=== PATIENT | male | born 1960 | race Caucasian/White ===

== ENCOUNTER 2020-12-04 13:32 | Emergency (ER) | payer MEDICAID, SELFPAY ==
[2020-12-04] VITALS (10 sets, daily range): BP systolic 132–169; BP diastolic 79–86; PULSE 61–85; RESP 12–26; TEMP 36.7; O2SAT 95–99
--- NOTE | ~2020-12-04 | XR_ITS ---
EXAMINATION: XR chest 2V DATE: 12/04/2020 14:36 INDICATION: Chest pain. Flulike symptoms. Generalized weakness. TECHNIQUE: frontal and lateral views of the chest were obtained. COMPARISON: None FINDINGS: Minimal streaky atelectasis at the right middle lobe. Tiny calcified nodules at the left costophrenic angle consistent with old granulomatous disease. No other airspace opacities, pulmonary edema, pleur al effusion or pneumothorax. The cardiomediastinal silhouette is normal. Couple old healed posterior right seventh and eighth rib fractures. Chronic appearing minimal to mild anterior wedging of a a few mid to lower thoracic vertebral bodies. IMPRESSION: 1. Minimal streaky atelectasis at the right middle lobe. No other acute cardiopulmonary disease. Reviewed, dictated and finalized at location A. IMPRESSION: 1. Minimal streaky atelectasis at the right middle lobe. No other acute cardiop ulmonary disease.
--- NOTE | 2020-12-04 14:03 | ECG_ITS ---
Measurements Intervals [place] Rate: 70 P: 76 AK: 148 QRS: 76 QRSD: 98 T: 68 QT: 365 QTc: 396 Interpretive Statements SINUS RHYTHM BASELINE ARTIFACT- I, II, AVR NORMAL ECG Electronically Signed On 12-04-2020 15:10:36 CDT by Robert Trimble D.O.
[2020-12-04 15:19] LABS: Basophils Absolute Auto 0.1 K/mm3 (0.0-0.1); Eosinophils Absolute Auto 0.1 K/mm3 (0-0.3); Eosinophils Percent Auto 0.7 % (0-4.4); Hematocrit 47.4 % (42.0-52.0); Hemoglobin 16.3 g/dL (14.0-18.0); Immature Granulocyte Absolute 0.06 K/mm3 (0.00-0.031); Immature Granulocyte Percent A 0.8 % (0-0.5); Lymphocytes Absolute Auto 1.84 K/mm3 (0.9-3.2); Mean Corpuscular HGB Conc 34.4 g/dl (32-36); Mean Corpuscular Volume 90.1 fl (80-100); Mean Platelet Volume 11.4 fl (7.4-10.4); Monocytes Absolute Auto 0.8 K/mm3 (0.1-0.6); Monocytes Percent Auto 11.6 % (2.6-8.5); Neutrophils Absolute Auto 4.2 K/mm3 (1.3-6.7); Neutrophils Percent Auto 59.9 % (45.5-73.1); Platelet Count Result 193 k/mm3 (150-375); Red Blood Count 5.26 M/mm3 (4.6-6.20); Red Cell Distribution Width 12.8 % (11.5-14.5); White Blood Count 7.1 K/mm3 (4.5-10.0)
[2020-12-04 15:24] LABS: Anion Gap 11 mmol/L (8-16); Blood Urea Nitrogen 14 mg/dL (9-20); Calcium 9.5 mg/dL (8.4-10.2); Carbon Dioxide 24 mmol/L (22-30); Chloride 104 mmol/L (98-107); Estimated CRCL calculation 80 ml/min; Estimated Glomerular Filt Rate > 60; Glucose 113 mg/dL (65-110); Potassium 3.9 mmol/L (3.4-5.0); Sodium 139 mmol/L (137-145)
[2020-12-04 15:29] LABS: INR 0.9; Prothrombin Time 12.1 Seconds (11.1-14.7)
[2020-12-04 15:33] LABS: Atypical Lymphocytes Present; Platelet Estimate Adequate (Adequate)
[2020-12-04 15:36] LABS: Troponin I < 0.012 ng/mL (0.000-0.034)
--- NOTE | 2020-12-04 16:54 | ED.URI ---
HPI - URI/Sore Throat General Chief Complaint: Chest Pain Stated Complaint: flu like sx Time Seen by Provider: 12/04/20 15:29 History of Present Illness HPI Narrative: 60-year-old male with no significant past medical history complaining of cough, chest pain, malaise, fatigue and sore throat for the past 5 days. Unknown fever, cough, chest pain worse with a deep breath. Patient did not get Covid vaccine this year. States his sister is also sick. 97% on room air, speaking full sentences without difficulty, MD elicited complaint: cough, sore throat and other (Pleuritic chest pain) Pertinent past history: other (Neck injury 8 months ago) Onset (ago): day(s) (5) Consistency: constant Severity: moderate Exacerbating factors: exertion and deep breaths Relieving factors: nothing Context: sick contacts Associated symptoms: chills, myalgias, headache, nasal congestion, sore throat, cough, chest pain and shortness of breath Treatments prior to arrival: none Related Data Allergies Allergy/AdvReac Type Severity Reaction Status Date / Time No Known Allergies Allergy Unverified 03/01/15 14:29 Review of Systems Review of Systems: CONSTITUTIONAL: no fever, no weight loss, no confusion EYES: no vision changes, no eye pain ENT: congestion, sore throat no difficulty swallowing CARDIOVASCULAR: pleuritic chest pain, no leg edema, no palpitations RESPIRATORY: cough, shortness of breath, no hemoptysis GASTROINTESTINAL: no abdominal pain, no nausea, no vomiting, no diarrhea GENITOURINARY: no flank pain, no dysuria, no hematuria SKIN: no rash, no jaundice MUSCULOSKELETAL: positive for neck pain, no trauma. NEUROLOGIC: No headache, no dizziness, no focal weakness PSYCHIATRIC: No hallucinations, no suicidal ideation Exam Narrative: General: alert, afebrile, answering all questions appropriately Head: normocephalic, atraumatic Eyes: EOMI bilaterally, anicteric, no injection ENT: moist mucous membranes, oropharynx patent, no rhinorrhea, uvual midline Neck: supple, trachea midline, no JVD Chest: equal chest rise bilaterally, no chest wall trauma noted Lungs: clear to auscultation bilaterally, respirations unlabored CV: regular rate, no LEELEE B, calf size equal bilaterally EXT: no deformity noted, moving all extremities equally Skin: warm, dry, no pallor Neuro: alert, oriented x 3; CN 2-12 grossly intact, no dysarthria Psych: affect appropriate, though content normal Course Course Emergency Course: 60-year-old male with no significant past medical history arrives with 5-day history of myalgias chest pressure with cough, cough and sore throat. Patient is 97% on room air is currently afebrile speaking full sentences without difficulty. Ambulating without differential. Labs were obtained EKG is normal sinus rhythm rate of 70 with no acute changes. All labs are normal. Patient does have a sick sister who is also has similar symptoms. Chest pain is considered noncardiac pleuritic in nature. Chest x-ray with no acute process. Patient will be given Tylenol Robitussin and will return if fever, intractable vomiting, inability to tolerate fluids or medications worsening pain shortness of breath or any concern and will follow up with primary doctor if no improvement in 1. Reevaluation(s) Reevaluation #1: No chest pain, afebrile, ambulating without difficulty. Physical exam normal. EKG with no acute changes. Date: 12/04/20 Time: 17:22 Vital Signs Vital signs: Vital Signs Temperature 36.7 C 12/04/20 14:02 Pulse Rate 80 12/04/20 14:02 Respiratory Rate 18 12/04/20 14:02 Blood Pressure 169/86 H 12/04/20 14:02 Pulse Oximetry 99 12/04/20 14:02 Temperature 36.7 C 12/04/20 14:02 Pulse Rate 78 12/04/20 17:00 Respiratory Rate 20 12/04/20 17:00 Blood Pressure 132/86 12/04/20 17:00 Pulse Oximetry 97 12/04/20 17:00 MDM - URI/Sore Throat MDM Narrative Medical decision making narrative: 60-year-old male complaining of 5-day history of pleuritic
[2020-12-04] MEDS: ACETAMINOPHEN 500 MG TABLET 1000 MG PO (17:30)
== END 2020-12-04 17:20 | disposition home or self-care (01) ==
PROVIDERS: Emergency Medicine; Emergency Provider Emergency Medicine
DX: B34.9 Viral infection, unspecified (principal)
CPT/HCPCS: 36415; 71046; 80048; 84484; 85025; 85610; 85730; 93005; 99284; A9270